=== PATIENT | female | born 1960 | race Hispanic/Latino ===

== ENCOUNTER 2016-11-20 13:56 | Emergency (ER) | payer MEDICARE ==
[2016-11-20 15:33] LABS: Hemoglobin 12.9 gm/dl (10.1-14.3); Mean Corpuscular HGB Conc 34 % (30-34); Mean Corpuscular Hemoglobin 31 pg (28-32); Mean Corpuscular Volume 91 fl (79-97); Platelet Count 363 K/mm3 (140-440); Red Blood Count 4.18 M/mm3 (3.65-5.03); Red Cell Distribution Width 15.1 % (13.2-15.2); White Blood Count 6.7 K/mm3 (4.5-11.0)
[2016-11-20 15:54] LABS: Alanine Aminotransferase 24 units/L (7-56); Albumin 3.9 g/dL (3.9-5); Albumin/Globulin Ratio 1.2 %; Alkaline Phosphatase 93 units/L (35-129); Anion Gap 15 mmol/L; BUN/Creatinine Ratio 21.11; Bilirubin,Total 0.2 mg/dL (0.1-1.2); Blood Urea Nitrogen 19 mg/dL (7-17); Carbon Dioxide 31 mmol/L (22-30); Chloride 96.9 mmol/L (98-107); Glucose 91 mg/dL (65-100); Potassium 3.9 mmol/L (3.6-5.0); Sodium 139 mmol/L (137-145); Total Protein 7.1 g/dL (6.3-8.2)
--- NOTE | 2016-11-20 20:18 | Emergency Department Report ---
ED Recheck HPI - General Chief Complaint: Recheck/Abnormal Lab/Rx Stated Complaint: DEHYDRATION Time Seen by Provider: 11/20/16 19:49 Source: patient, old records reviewed (patient brought her 10/31/2016 CMP results to the ER) Mode of arrival: Ambulatory Limitations: No Limitations - History of Present Illness Initial Comments: 56-year-old female with a past medical history of multiple sclerosis and fibromyalgia presents to the hospital complaints of abnormal blood work. Patient was advised by her neurologist to come to the ER for evaluation based on abnormal lab findings. She is likely dehydrated and will need IV fluids. Labs were drawn October 31 in revealed a BUN of 40, creatinine 1.7, potassium 3.2. Other values of BMP, calcium, and LFTs were in normal range. Patient states she's been tolerating by mouth intake and denies any acute complaints. She presented generalized chronic pain secondary to her underlying multiple sclerosis and fibromyalgia. - Related Data Previous Rx's Medication Instructions Recorded Last Taken Type Oxycodone HCl/Acetaminophen 1 each PO Q6HR PRN #30 tablet 05/29/15 Unknown Rx [Percocet 10/325 mg] Allergies Allergy/AdvReac Type Severity Reaction Status Date / Time codeine Allergy Rash Verified 07/14/16 14:21 meloxicam Allergy Anaphylaxis Verified 07/14/16 14:21 Penicillins Allergy Rash Verified 07/14/16 14:21 vancomycin Allergy Rash Verified 07/14/16 14:21 bee string Allergy Anaphylaxis Uncoded 05/28/15 21:37 ED Review of Systems ROS: Stated complaint: DEHYDRATION Other details as noted in HPI Comment: All other systems reviewed and negative Other: Constitutional: No fevers chills Eyes: No eye pain visual changes ENT: No ear pain or throat pain Neck: Denies pain Respiratory: Denies cough wheezing shortness of breath Cardiovascular: Denies chest pain, palpitations, syncope GI: Denies abdominal pain, nausea, vomiting, diarrhea : Denies dysuria Musculoskeletal: Denies chronic pain Skin: Denies rash, lesions, erythema Neurologic: Denies headache, numbness, weakness Psychiatric: Denies suicidal ideation, hallucinations ED Past Medical Hx - Past Medical History Previous Medical History?: Yes Additional medical history: Multiple sclerosis/ FIBROMALYGIA - Surgical History Past Surgical History?: Yes Hx Appendectomy: Yes Additional Surgical History: carpal tunnel x 3. diverticulitis. shoulder repair x 2 - Social History Smoking Status: Former Smoker Substance Use Type: None - Medications Home Medications: Home Medications Medication Instructions Recorded Confirmed Last Taken Type Oxycodone HCl/Acetaminophen 1 each PO Q6HR PRN #30 tablet 05/29/15 07/14/16 Unknown Rx [Percocet 10/325 mg] ED Physical Exam - General Limitations: No Limitations - Other Other exam information: General: No limitations, patient is alert in no acute distress Head exam: Atraumatic, normocephalic Eyes exam: Normal appearance ENT: Moist mucous membrane, normal oropharynx Neck exam: Normal inspection, full range of motion Respiratory exam: Clear to auscultation bilateral, no wheezes, rales, crackles Cardiovascular: Normal rate and rhythm, normal heart sounds Abdomen: Soft, nondistended, and nontender, with normal bowel sounds, no rebound, or guarding Extremity: Full range of motion normal inspection no deformity Back: Normal Inspection, full range of motion, no tenderness Neurologic: Alert, oriented x3, cranial nerves intact, no motor or sensory deficit Psychiatric: normal affect, normal mood Skin: Warm, dry, intact ED Course Vital Signs 11/20/16 14:41 Temperature 98.1 F Pulse Rate 64 Respiratory 18 Rate Blood Pressure 106/41 O2 Sat by Pulse 96 Oximetry - Reevaluation(s) Reevaluation #1: 11/20/16 20:20 Patient without any complaints ED Recheck MDM - Medical Decision Making Discharge patient home. Labs were drawn greater than 2 weeks ago. Patient has tolerated by mouth intake and self corrected. Patient will be discharged home with a copy of her lab results to take to her physicians for follow-up Critical Care Time: No Critical care attestation.: If time is entered above; I have spent that time in minutes in the direct care of this critically ill patient, excluding procedure time. ED Disposition Clinical Impression: Multiple sclerosis, Fibromyalgia Disposition: DISCHARGED TO HOME OR SELFCARE Is pt being admited?: No Does the pt Need Aspirin: No Condition: Stable Instructions: Fibromyalgia (ED) Additional Instructions: Continue current medication and treatment. You have been provided a copy of your lab results today. They have improved since her outpatient lab results from October 30. Follow-up with your physician Referrals: PRIMARY CARE, [Primary Care Provider] - 3-5 Days Time of Disposition: 20:24
[2016-11-20 21:15] VITALS: BP 119/58
== END 2016-11-20 21:05 | disposition home or self-care (01) ==
LOC: ED 13:56
DX: M79.7 Fibromyalgia (principal); G35 Multiple sclerosis; R79.9 Abnormal finding of blood chemistry, unspecified; Z87.891 Personal history of nicotine dependence; Z88.6 Allergy status to analgesic agent; Z88.0 Allergy status to penicillin; Z88.1 Allergy status to other antibiotic agents; Z91.030 Bee allergy status
CPT/HCPCS: 36415; 80053; 85027; 99283

== ENCOUNTER 2017-04-08 14:39 | Inpatient (IN) | payer MEDICARE ==
--- NOTE | 2017-04-08 17:08 | Emergency Department Report ---
Entered by CHI PRICE, acting as scribe for MARYCHUY DUFFY NP. Chief Complaint: Extremity Injury, Lower Stated Complaint: LEFT LEG PAIN Time Seen by Provider: 04/08/17 16:57 - HPI History of Present Illness: 56 y/o female presents with a hernia that has been present for a few months. Pt also notes left lower extremity pain. She denies having a menstrual cycle. - ROS Review of Systems: +mass in right inguinal canal +left lower extremity pain, swelling, redness - Exam Vital Signs: Vital Signs 04/08/17 16:59 Temperature 99.9 F H Pulse Rate 96 H Respiratory 16 Rate Blood Pressure 140/61 O2 Sat by Pulse 97 Oximetry Physical Exam: +mass in right inguinal canal +left leg swelling, erythema MSE screening note: Focused history and physical exam performed. Due to findings the following was ordered: labs ED Disposition for MSE Condition: Stable This documentation as recorded by the scribeDEE RYAN,accurately reflects the service I personally performed and the decisions made by TATI watson TRACY M, NP.
[2017-04-08 17:56] LABS: Basophils % (Auto) 0.9 % (0.0-1.8); Eosinophils % (Auto) 1.3 % (0.0-4.3); Hematocrit 40.7 % (30.3-42.9); Hemoglobin 13.7 gm/dl (10.1-14.3); Mean Corpuscular HGB Conc 34 % (30-34); Mean Corpuscular Hemoglobin 31 pg (28-32); Mean Corpuscular Volume 91 fl (79-97); Platelet Count 487 K/mm3 (140-440); Red Blood Count 4.47 M/mm3 (3.65-5.03); White Blood Count 12.3 K/mm3 (4.5-11.0)
[2017-04-08 17:57] LABS: Bacteria,Urine 2+ /HPF (Negative); Bilirubin,Urine NEG (Negative); Blood,Urine MOD (Negative); Ketones,Urine NEG (Negative); Leukocyte Esterase,Urine LG (Negative); Mucus,Urine FEW /HPF; Nitrite,Urine NEG (Negative); Urobilinogen,Urine < 2.0 mg/dL (<2.0)
[2017-04-08 18:20] LABS: Albumin 4.7 g/dL (3.9-5); Albumin/Globulin Ratio 1.1 %; BUN/Creatinine Ratio 18.09; Bilirubin,Total 0.4 mg/dL (0.1-1.2); Calcium 9.6 mg/dL (8.4-10.2); Chloride 91.5 mmol/L (98-107); Potassium 3.1 mmol/L (3.6-5.0); Total Protein 8.8 g/dL (6.3-8.2)
[2017-04-09] MEDS ORDERED: ZOFRAN IV ONE (01:58)
[2017-04-09] MEDS ORDERED: LEVAQUIN 500MG/100ML 500 MG/100 ML BAG IV ONE (01:59)
--- NOTE | 2017-04-09 02:06 | Emergency Department Report ---
<DOMENIC ORTIZ - Last Filed: 04/09/17 02:02> ED Abdominal Pain HPI - General Chief Complaint: Abdominal Pain Stated Complaint: LEFT LEG PAIN Time Seen by Provider: 04/08/17 16:57 Source: patient, EMS Mode of arrival: Ambulatory Limitations: No Limitations - History of Present Illness MD Complaint: abdominal pain -: Gradual, days(s) Location: RLQ Radiation: none Migration to: no migration Severity: moderate Severity scale (0 -10): 5 Quality: fullness Consistency: constant Associated Symptoms: nausea. denies: vomiting, chills - Related Data Home Medications Medication Instructions Recorded Confirmed Last Taken Unobtainable 04/09/17 04/09/17 Unknown Allergies Allergy/AdvReac Type Severity Reaction Status Date / Time codeine Allergy Rash Verified 04/09/17 01:33 meloxicam Allergy Anaphylaxis Verified 04/09/17 01:33 Penicillins Allergy Rash Verified 04/09/17 01:33 vancomycin Allergy Rash Verified 04/09/17 01:33 bee string Allergy Anaphylaxis Uncoded 04/09/17 01:33 ED Review of Systems ROS: Stated complaint: LEFT LEG PAIN Other details as noted in HPI Comment: All other systems reviewed and negative Constitutional: denies: chills, fever Cardiovascular: denies: chest pain, palpitations Gastrointestinal: nausea. denies: vomiting, constipation ED Past Medical Hx - Past Medical History Previous Medical History?: Yes Additional medical history: Multiple sclerosis/ FIBROMALYGIA - Surgical History Past Surgical History?: Yes Hx Appendectomy: Yes Additional Surgical History: carpal tunnel x 3. diverticulitis. shoulder repair x 2 - Social History Smoking Status: Former Smoker Substance Use Type: None - Medications Home Medications: Home Medications Medication Instructions Recorded Confirmed Last Taken Type Unobtainable 04/09/17 04/09/17 Unknown History ED Physical Exam - General Limitations: No Limitations General appearance: alert, in no apparent distress - Neck Neck exam: Present: normal inspection. Absent: tenderness - Respiratory Respiratory exam: Present: normal lung sounds bilaterally - Cardiovascular Cardiovascular Exam: Present: regular rate, normal rhythm, normal heart sounds - GI/Abdominal GI/Abdominal exam: Present: soft, tenderness, hernia (rt inguinal hernia, irreducible). Absent: guarding, rebound, normal bowel sounds, diminished bowel sounds, mass - Back Exam Back exam: Present: normal inspection. Absent: tenderness, CVA tenderness (R), CVA tenderness (L) - Neurological Exam Neurological exam: Present: alert, oriented X3, CN II-XII intact - Skin Skin exam: Present: warm, normal color ED Course Vital Signs 04/08/17 04/09/17 04/09/17 16:59 01:49 03:00 Temperature 99.9 F H Pulse Rate 96 H 72 88 Respiratory 16 20 16 Rate Blood Pressure 140/61 Blood Pressure 137/72 128/75 [Left] O2 Sat by Pulse 97 100 100 Oximetry 04/09/17 06:30 Temperature 98.4 F Pulse Rate 80 Respiratory 20 Rate Blood Pressure Blood Pressure 111/58 [Left] O2 Sat by Pulse 97 Oximetry ED Medical Decision Making - Lab Data Result diagrams: 04/08/17 17:44 04/08/17 17:44 Critical care attestation.: If time is entered above; I have spent that time in minutes in the direct care of this critically ill patient, excluding procedure time. ED Disposition Clinical Impression: Acute renal insufficiency, Right inguinal hernia, Constipation, Ileus, Hypokalemia Disposition: -09 OP ADMIT IP TO THIS [facility] Condition: Stable <HELADIO ESPARZA - Last Filed: 04/09/17 07:07> ED Medical Decision Making - Lab Data Result diagrams: 04/08/17 17:44 04/08/17 17:44 - Radiology Data Radiology results: report reviewed CT abdomen and pelvis by mouth contrast: A few loops of distal slightly dilated small bowel in the lower abdomen. Ileus in this distal ileum is suspected. Moderate fecal debris in the colon consistent with constipation. Right inguinal hernia with fat and fluid ED Disposition Is pt being admited?: Yes Time of Disposition: 07:06 (Dr gonsalves/hosp)
--- NOTE | 2017-04-09 06:27 | Cat Scan Report ---
FINAL REPORT PROCEDURE: CT ABDOMEN PELVIS WO CON TECHNIQUE: Computerized axial tomography of the abdomen and pelvis was performed without intravenous contrast. This study is performed without intravascular contrast material and its sensitivity for abdominal and pelvic pathology, including neoplasms, inflammation, abscess, free fluid, thrombosis, arterial dissection and infarction, is reduced compared with a contrast enhanced study. HISTORY: ABDOMINAL PAIN, RT inguinal hernia,irreducible COMPARISON: No prior studies are available for comparison. FINDINGS: Visualized lower thorax: No significant abnormality. Liver: Normal size and attenuation. Spleen: Normal size and attenuation. Gallbladder and biliary system: Normal. Pancreas: Normal. Adrenals: Normal. Kidneys: Normal. GI tract: The stomach is normal. There are few loops of slightly dilated small bowel in the lower abdomen. In ileus in the distal ileum is suspected. The cecum, appendix region and colon are normal. Moderate fecal debris throughout the colon.. Lymph nodes and mesentery: Normal. Vasculature: Normal. Bladder: The urinary bladder is significantly distended.. Reproductive organs: There is a large cyst on the right ovary. There appears to be a few calcifications in the periphery. Dermoid cyst is possible. This cyst measures 3.6 by 3.7 centimeters. The uterus is normal.. Peritoneum: No free fluid. Musculoskeletal structures: No significant abnormality. Other: There is a right inguinal hernia there is some mesenteric fat and some fluid within the hernia cavity.. IMPRESSION: There are few loops of slightly dilated small bowel in the lower abdomen. An ileus in the distal ileum is suspected. Moderate fecal debris in the colon consistent with constipation. Right inguinal hernia with fat in fluid identified within the hernia cavity. .
--- NOTE | 2017-04-09 07:23 | Admit Criteria Form ---
Admission Criteria Documentation: ABDOMINAL PAIN Clinical Indications for Admission to Inpatient Care (Place 'X' for any and all applicable criteria): Admission is indicated for ANY ONE of the following(1)(2)(3)(4)(5): [ X]I. Inpatient admission required rather than observation care (Also use Abdominal Pain: Observation Care, as appropriate) because of ANY ONE of the following: [ ]a) Severe pain requiring acute inpatient management [X ]b) Identification of etiology/finding that requires inpatient care (eg, aortic dissection, free air) [ ]c) Absent bowel sounds with complete ileus(6) [ ]d) Suspected toxic megacolon [ ]e) Severe electrolyte abnormalities requiring inpatient care [ ]f) High fever or infection requiring inpatient admission as indicated by ANY ONE of following(7)(8): [ ] i) Appropriate outpatient or observational care antimicrobial treatment unavailable, not effective, or not feasible [ ] ii) Documented bacteremia [ ] iii) Temperature > 104.9 degrees F (oral) [ ] iv) T >103.1 F (oral) or < 96.8 F(rectal) that does not respond to all emergency treatment measures [ ]g) Signs of intestinal obstruction [B] [ ]h) Hemodynamic instability [ ]i) IV fluid to replace significant ongoing losses (greater than 3 L/m2 per day) (12)(13) [ ]j) Percutaneous or open drainage (eg, abscess, biliary tract ) procedures [ ]k) Parenteral nutrition regimen that must be implemented on inpatient basis [ ]l) Other condition,treatment or monitoring requiring inpatient admission. [ ]II. Peritoneal signs present [ ]III. Surgery needed that cannot be performed on an ambulatory basis. [ ]IV. Evaluation requires patient to not eat or drink for extended period ( eg, more than 24 hours). [ ]V. Contraindications and/or Inappropriate clinical situations for Observational Care in patients with abdominal pain, when ANY ONE of the following is required: [ ]a) Thorough evaluation is required to prevent catastrophic events due to delays in diagnosing (e.g.Mesenteric ischemia) 1,3 [ ]b) Patient with severe pathology or with chronic symptoms unlikely to improve in the ED stay (3) [X ]. General contraindications and/or Inappropriate clinical situations for Observational Care in patients with abdominal pain, when ANY ONE of the following is required: [X ]a) Prediction of prolongation of LOS based on ANY ONE of the following may be considered as a contraindication for observational care 2, 3, 4, 5, 6, 7, 8, 9, 10, 11 [ ]i) Age > 65 yrs. [X ]ii) Patient arriving by ambulance [ ]iii) Patient with high acuity [ ]iv) Patient requiring vital sign monitoring [ ]v) Patient on IV medication [ ]b) Systolic blood pressures 180mmHg 3,12 [ ]c) Patient with altered mental status including delirium and other alteration of consciousness, (3) [ ]d) Patient whose discharge disposition will be to a custodial home or rehabilitation home should not be managed in Emergency Department Observation Unit. CMS rule requires 3 days hospital stay before such placement.3,13 [ ]e) Patient with failure to thrive due to broad array of etiologies 3,16,17 [ ]f) Inability to ambulate 3,14 Extended stay beyond goal length of stay may be needed for(2)(3): [ ]a) Persistent abdominal pain with suspected intra-abdominal process [ ]b) Diagnosed condition requiring continued stay (e.g., pancreatitis, complicated diverticulitis) [ ]c) Surgery (e.g., colectomy) The original [email or web address] content created by [employer] has been revised. The portions of the content which have been revised are identified through the use of italic text or in bold, and [facility] has neither reviewed nor approved the modified material.All other unmodified content is copyright [email or web address]. Please see references footnoted in the original [facility] [employer] edition 2016 Admission Criteria Met: Yes
--- NOTE | 2017-04-09 08:16 | History and Physical Report ---
<LOY STOVALL - Last Filed: 04/09/17 12:49> History of Present Illness Date of examination: 04/09/17 Date of admission: 04/09/2017 Chief complaint: Abdominal pain, nausea and vomiting History of present illness: Patient is 56 years old female with past medical history of multiple sclerosis and fibromyalgia presents to the hospital complaints of abdominal pain, nausea and vomiting. patient two days of severe abdominal pain, nausea and vomiting. She stated that on yesterday evening after being in her usual state of health she began to experience sharp lower abdominal pain that radiated to right lower quadrant. The pain waxed and waned and was about a 4/10.Since yesterday she has had severe nausea and has had 4 episodes of bilious vomiting despite not having taken anything by mouth in over 24 hours. Her last bowel movement was over five days ago. She has a history of intermittent constipation but never with this level of pain, the vomiting, or the bloating. Patient also mentioned her abdominal pain is coming from her right inguinal hernia. Past History Past Medical History: other (Multiple sclerosis and fibromyalgia ) Past Surgical History: No surgical history Social history: no significant social history, smoking Family history: CAD, hypertension Medications and Allergies Allergies Allergy/AdvReac Type Severity Reaction Status Date / Time codeine Allergy Rash Verified 04/09/17 01:33 meloxicam Allergy Anaphylaxis Verified 04/09/17 01:33 Penicillins Allergy Rash Verified 04/09/17 01:33 vancomycin Allergy Rash Verified 04/09/17 01:33 bee string Allergy Anaphylaxis Uncoded 04/09/17 01:33 Home Medications Medication Instructions Recorded Confirmed Last Taken Type Unobtainable 04/09/17 04/09/17 Unknown History Review of Systems Constitutional: no weight loss, no weight gain, no fever, no chills Ears, nose, mouth and throat: no ear pain, no ear discharge, no tinnitis, no decreased hearing Cardiovascular: no chest pain, no orthopnea, no palpitations, no rapid/ irregular heart beat Respiratory: no cough, no cough with sputum, no excessive sputum, no hemoptysis Gastrointestinal: nausea, vomiting, constipation Genitourinary Female: no dysmenorrhea, no pelvic pain, no flank pain, no menorrhagia, no dysuria, no urinary frequency Menstruation: no currently menstrual, no premenarcheal, no post hysterectomy, no ammenorrhea Rectal: no pain, no incontinence Musculoskeletal: no neck stiffness, no neck pain, no shooting arm pain Integumentary: no rash, no pruritis, no redness, no sores Neurological: no transient paralysis, no paralysis, no weakness, no parathesias Psychiatric: no memory loss, no change in sleep habits, no sleep disturbances, no insomnia Endocrine: no cold intolerance, no heat intolerance, no polyphagia, no excessive thirst Hematologic/Lymphatic: no easy bruising, no easy bleeding Allergic/Immunologic: no urticaria, no allergic rhinitis Exam - Constitutional Vitals: Temp Pulse Resp BP Pulse Ox 98.4 F 80 20 111/58 97 04/09/17 06:30 04/09/17 06:30 04/09/17 06:30 04/09/17 06:30 04/09/17 06:30 General appearance: Present: no acute distress - EENT Eyes: Present: PERRL ENT: hearing intact - Neck Neck: Present: supple - Respiratory Respiratory effort: normal Respiratory: bilateral: CTA - Cardiovascular Heart rate: 80 Rhythm: regular Heart Sounds: Present: S1 & S2 - Extremities Extremities: no ischemia Peripheral Pulses: within normal limits - Abdominal General gastrointestinal: Present: soft, non-tender Female genitourinary: Present: deferred - Rectal Rectal Exam: deferred - Integumentary Integumentary: Present: clear, warm, dry - Musculoskeletal Musculoskeletal: strength equal bilaterally - Psychiatric Psychiatric: appropriate mood/affect - Neurologic Neurologic: CNII-XII intact - Allied Health Allied health notes reviewed: nursing Results - Labs CBC & Chem 7: 04/08/17 17:44 04/08/17 17:44 Labs: Laboratory Last Values WBC 12.3 K/mm3 (4.5-11.0) H 04/08/17 17:44 RBC 4.47 M/mm3 (3.65-5.03) 04/08/17 17:44 Hgb 13.7 gm/dl (10.1-14.3) 04/08/17 17:44 Hct 40.7 % (30.3-42.9) 04/08/17 17:44 MCV 91 fl (79-97) 04/08/17 17:44 MCH 31 pg (28-32) 04/08/17 17:44 MCHC 34 % (30-34) 04/08/17 17:44 RDW 14.0 % (13.2-15.2) 04/08/17 17:44 Plt Count 487 K/mm3 (140-440) H 04/08/17 17:44 Lymph % (Auto) 33.1 % (13.4-35.0) 04/08/17 17:44 [place] % (Auto) 9.5 % (0.0-7.3) H 04/08/17 17:44 Eos % (Auto) 1.3 % (0.0-4.3) 04/08/17 17:44 Baso % (Auto) 0.9 % (0.0-1.8) 04/08/17 17:44 Lymph # 4.1 K/mm3 (1.2-5.4) 04/08/17 17:44 [place] # 1.2 K/mm3 (0.0-0.8) H 04/08/17 17:44 Eos # 0.2 K/mm3 (0.0-0.4) 04/08/17 17:44 Baso # 0.1 K/mm3 (0.0-0.1) 04/08/17 17:44 Seg Neutrophils % 55.2 % (40.0-70.0) 04/08/17 17:44 Seg Neutrophils # 6.8 K/mm3 (1.8-7.7) 04/08/17 17:44 Sodium 138 mmol/L (137-145) 04/08/17 17:44 Potassium 3.1 mmol/L (3.6-5.0) L 04/08/17 17:44 Chloride 91.5 mmol/L (98-107) L 04/08/17 17:44 Carbon Dioxide 31 mmol/L (22-30) H 04/08/17 17:44 Anion Gap 19 mmol/L 04/08/17 17:44 BUN 38 mg/dL (7-17) H 04/08/17 17:44 Creatinine 2.1 mg/dL (0.7-1.2) H 04/08/17 17:44 Estimated GFR 24 ml/min 04/08/17 17:44 BUN/Creatinine Ratio 18.09 % 04/08/17 17:44 Glucose 118 mg/dL (65-100) H 04/08/17 17:44 Calcium 9.6 mg/dL (8.4-10.2) 04/08/17 17:44 Total Bilirubin 0.40 mg/dL (0.1-1.2) 04/08/17 17:44 AST 92 units/L (5-40) H 04/08/17 17:44 ALT 53 units/L (7-56) 04/08/17 17:44 Alkaline Phosphatase 114 units/L (35-129) 04/08/17 17:44 NT-Pro-B Natriuret Pep 163.7 pg/mL (0-900) 04/08/17 17:44 Total Protein 8.8 g/dL (6.3-8.2) H 04/08/17 17:44 Albumin 4.7 g/dL (3.9-5) 04/08/17 17:44 Albumin/Globulin Ratio 1.1 % 04/08/17 17:44 Urine Color Yellow (Yellow) 04/08/17 17:45 Urine Turbidity Cloudy (Clear) 04/08/17 17:45 Urine pH 5.0 (5.0-7.0) 04/08/17 17:45 Ur Specific [place] 1.013 (1.003-1.030) 04/08/17 17:45 Urine Protein 30 mg/dl mg/dL (Negative) 04/08/17 17:45 Urine Glucose (UA) Neg mg/dL (Negative) 04/08/17 17:45 Urine Ketones Neg mg/dL (Negative) 04/08/17 17:45 Urine Blood Mod (Negative) 04/08/17 17:45 Urine Nitrite Neg (Negative) 04/08/17 17:45 Urine Bilirubin Neg (Negative) 04/08/17 17:45 Urine Urobilinogen < 2.0 mg/dL (<2.0) 04/08/17 17:45 Ur Leukocyte Esterase Lg (Negative) 04/08/17 17:45 Urine WBC (Auto) 18.0 /HPF (0.0-6.0) H 04/08/17 17:45 Urine RBC (Auto) 6.0 /HPF (0.0-6.0) 04/08/17 17:45 U Epithel Cells (Auto) 39.0 /HPF (0-13.0) H 04/08/17 17:45 Urine Bacteria (Auto) 2+ /HPF (Negative) 04/08/17 17:45 Urine Mucus Few /HPF 04/08/17 17:45 - Imaging and Cardiology CT scan - abdomen: image reviewed (CT abdomen and pelvis by mouth contrast: A few loops of distal slightly dilated small bowel in the lower abdomen. Ileus in this distal ileum is suspected. Moderate fecal debris in the colon consistent with constipation. Right inguinal hernia with fat and fluid) Assessment and Plan Assessment and plan: ASSESSMENT/PLAN Sepsis We will admit to MED/SURG most likely secondary to UTI Elevated urine WBC Blood and urine culture collected prior antibiotic Started on empiric antibiotic treatment with Rocephin IV fluid Acute renal failure/vasomotor nephropathy Etiology unknown Most likely from dehydration IV fluid hydration Renal ultrasound ordered Nephrology building performance consultant we will repeat BMP in the AM Urinary tract infection (UTI) Started on empiric antibiotic treatment with Rocephin IV fluid hydration Leukocytosis Most likely from UTI we will repeat CBC Hypokalemia Replaced with 40meq Closely monitor electrolytes Right inguinal hernia CT of the abdomen right Inguinal hernia with fat and fluid consulted surgery Possible Ileus CT abdomen and pelvis by mouth contrast: A few loops of distal slightly dilated small bowel in the lower abdomen. Ileus in this distal ileum is suspected. Moderate fecal debris in the colon consistent with constipation. DVT prophylaxis Lovenox. Advance Directives: Yes VTE prophylaxis?: Chemical Contraindication Mechanical VTE Prophylaxis: Treatment Not Indicated Plan of care discussed with patient/family: Yes <ANJELICA MALLOY - Last Filed: 04/09/17 13:26> History of Present Illness Date of admission: 04/09/17 08:05 Medications and Allergies Active Meds: Active Medications Acetaminophen (Tylenol) 650 mg PO Q4H PRN PRN Reason: Pain MILD(1-3)/Fever >100.5/ROSADO Bisacodyl (Dulcolax) 10 mg [place] QDAY PRN PRN Reason: Constipation Enoxaparin Sodium (Lovenox) 40 mg SUB-Q QDAY@2200 [facility] Sodium Chloride (Nacl 0.9% 1000 Ml) 1,000 mls @ 75 mls/hr IV DIRECT [facility] Ceftriaxone Sodium (Rocephin/Ns 1 Gm/50 Ml) 1 gm in 50 mls @ 100 mls/hr IV Q24H [facility] PRN Reason: Protocol Last Admin: 04/09/17 09:27 Dose: 100 mls/hr Morphine Sulfate (Morphine) 2 mg IV Q4H PRN PRN Reason: Pain, Moderate (4-6) Ondansetron HCl (Zofran) 4 mg IV Q4H PRN PRN Reason: Nausea And Vomiting Potassium Chloride (K-Dur) 40 meq PO ONCE NR Stop: 04/09/17 14:30 Potassium Chloride (K-Dur) 40 meq PO ONCE ONE Stop: 04/09/17 13:21 Exam - Constitutional Vitals: Temp Pulse Resp BP Pulse Ox 98.4 F 80 20 111/58 97 04/09/17 06:30 04/09/17 06:30 04/09/17 06:30 04/09/17 06:30 04/09/17 06:30 Results - Labs CBC & Chem 7: 04/08/17 17:44 04/08/17 17:44 Labs: Laboratory Last Values WBC 12.3 K/mm3 (4.5-11.0) H 04/08/17 17:44 RBC 4.47 M/mm3 (3.65-5.03) 04/08/17 17:44 Hgb 13.7 gm/dl (10.1-14.3) 04/08/17 17:44 Hct 40.7 % (30.3-42.9) 04/08/17 17:44 MCV 91 fl (79-97) 04/08/17 17:44 MCH 31 pg (28-32) 04/08/17 17:44 MCHC 34 % (30-34) 04/08/17 17:44 RDW 14.0 % (13.2-15.2) 04/08/17 17:44 Plt Count 487 K/mm3 (140-440) H 04/08/17 17:44 Lymph % (Auto) 33.1 % (13.4-35.0) 04/08/17 17:44 [place] % (Auto) 9.5 % (0.0-7.3) H 04/08/17 17:44 Eos % (Auto) 1.3 % (0.0-4.3) 04/08/17 17:44 Baso % (Auto) 0.9 % (0.0-1.8) 04/08/17 17:44 Lymph # 4.1 K/mm3 (1.2-5.4) 04/08/17 17:44 [place] # 1.2 K/mm3 (0.0-0.8) H 04/08/17 17:44 Eos # 0.2 K/mm3 (0.0-0.4) 04/08/17 17:44 Baso # 0.1 K/mm3 (0.0-0.1) 04/08/17 17:44 Seg Neutrophils % 55.2 % (40.0-70.0) 04/08/17 17:44 Seg Neutrophils # 6.8 K/mm3 (1.8-7.7) 04/08/17 17:44 Sodium 138 mmol/L (137-145) 04/08/17 17:44 Potassium 3.1 mmol/L (3.6-5.0) L 04/08/17 17:44 Chloride 91.5 mmol/L (98-107) L 04/08/17 17:44 Carbon Dioxide 31 mmol/L (22-30) H 04/08/17 17:44 Anion Gap 19 mmol/L 04/08/17 17:44 BUN 38 mg/dL (7-17) H 04/08/17 17:44 Creatinine 2.1 mg/dL (0.7-1.2) H 04/08/17 17:44 Estimated GFR 24 ml/min 04/08/17 17:44 BUN/Creatinine Ratio 18.09 % 04/08/17 17:44 Glucose 118 mg/dL (65-100) H 04/08/17 17:44 Calcium 9.6 mg/dL (8.4-10.2) 04/08/17 17:44 Total Bilirubin 0.40 mg/dL (0.1-1.2) 04/08/17 17:44 AST 92 units/L (5-40) H 04/08/17 17:44 ALT 53 units/L (7-56) 04/08/17 17:44 Alkaline Phosphatase 114 units/L (35-129) 04/08/17 17:44 NT-Pro-B Natriuret Pep 163.7 pg/mL (0-900) 04/08/17 17:44 Total Protein 8.8 g/dL (6.3-8.2) H 04/08/17 17:44 Albumin 4.7 g/dL (3.9-5) 04/08/17 17:44 Albumin/Globulin Ratio 1.1 % 04/08/17 17:44 Urine Color Yellow (Yellow) 04/09/17 Unknown Urine Turbidity Clear (Clear) 04/09/17 Unknown Urine pH 5.0 (5.0-7.0) 04/09/17 Unknown Ur Specific [place] 1.013 (1.003-1.030) 04/09/17 Unknown Urine Protein <15 mg/dl mg/dL (Negative) 04/09/17 Unknown Urine Glucose (UA) Neg mg/dL (Negative) 04/09/17 Unknown Urine Ketones Neg mg/dL (Negative) 04/09/17 Unknown Urine Blood Sm (Negative) 04/09/17 Unknown Urine Nitrite Neg (Negative) 04/09/17 Unknown Urine Bilirubin Neg (Negative) 04/09/17 Unknown Urine Urobilinogen < 2.0 mg/dL (<2.0) 04/09/17 Unknown Ur Leukocyte Esterase Sm (Negative) 04/09/17 Unknown Urine WBC (Auto) 4.0 /HPF (0.0-6.0) 04/09/17 Unknown Urine RBC (Auto) 1.0 /HPF (0.0-6.0) 04/09/17 Unknown U Epithel Cells (Auto) 4.0 /HPF (0-13.0) 04/09/17 Unknown Urine Bacteria (Auto) 2+ /HPF (Negative) 04/08/17 17:45 Urine Mucus Few /HPF 04/09/17 Unknown Assessment and Plan Assessment and plan: I saw and evaluated the patient. I agree with the findings and the plan of care as documented in the Nurse Practitioner's H/P note. Advance Directives: Yes VTE prophylaxis?: Chemical Plan of care discussed with patient/family: Yes
[2017-04-09] MEDS ORDERED: TYLENOL PO PRN (08:30)
[2017-04-09] MEDS ORDERED: ZOFRAN IV PRN (09:00)
[2017-04-09] MEDS ORDERED: ROCEPHIN/NS 1 GM/50 ML 1 GM/50 ML BAG IV ONE (09:13)
[2017-04-09] MEDS: ROCEPHIN/NS 1 GM/50 ML 1 GM/50 ML BAG IV SCH (09:27)
[2017-04-09 09:36] LABS: Bilirubin,Urine NEG (Negative); Blood,Urine SM (Negative); Ketones,Urine NEG (Negative); Leukocyte Esterase,Urine SM (Negative); Mucus,Urine FEW /HPF; Nitrite,Urine NEG (Negative); Protein,Urine <15 mg/dL mg/dL (Negative); Urobilinogen,Urine < 2.0 mg/dL (<2.0)
[2017-04-09] MEDS ORDERED: DULCOLAX PR PRN (10:00)
[2017-04-09] MEDS ORDERED: K-DUR PO NR (13:00)
[2017-04-09] MEDS ORDERED: K-DUR PO ONE (14:00)
--- NOTE | 2017-04-09 14:31 | Ultrasound Report ---
ULTRASOUND RENAL BILATERAL HISTORY: Acute renal failure. TECHNIQUE: transabdominal ultrasound with color Doppler interrogation. FINDINGS: The right kidney measures 8.6cm. Right renal cortex: 1.6cm. The left kidney measures 9.5cm. Left renal cortex: 1.9cm. Scans of the kidneys show normal renal contours. There is normal central calyceal clustering and good preservation of the cortical thickness. There appears to be a duplicated collecting system in the left kidney. There is no evidence of mass or hydronephrosis. The views of the bladder and the region of the ureters appear normal. IMPRESSION: Unremarkable renal ultrasound. Duplicated collecting system and the left kidney which is probably an incidental finding.
[2017-04-09] MEDS: NACL 0.9% 1000 ML 1,000 ML IV SCH (15:17)
--- NOTE | 2017-04-09 16:12 | Consultation ---
History of Present Illness Consult date: 04/09/17 Reason for consult: other (I am asked to evaluate this patient's right inguinal hernia) - History of present illness History of present illness: This is a 56 year old female who presented to [facility] ER for evaluation of abd pain , incidentally noted to have a right inguinal hernia, she presented complaining of right lower quadrant pain, she is very agitated presently and does not respond to direct questions well (psych hx?), she said she had some nausea and vomiting prior to coming to the ER, she has a mildly elevated WBC, she has a reducible right inguinal hernia which is not very tender, she had a CT of the abd pelvis revealing mild dilatation of her terminal illeum , constipation, previous appendectomy. Past History Past Medical History: other (Multiple sclerosis and fibromyalgia ) Past Surgical History: No surgical history Social history: no significant social history, smoking Family history: CAD, hypertension Medications and Allergies Allergies Allergy/AdvReac Type Severity Reaction Status Date / Time codeine Allergy Rash Verified 04/09/17 01:33 meloxicam Allergy Anaphylaxis Verified 04/09/17 01:33 Penicillins Allergy Rash Verified 04/09/17 01:33 vancomycin Allergy Rash Verified 04/09/17 01:33 bee string Allergy Anaphylaxis Uncoded 04/09/17 01:33 Home Medications Medication Instructions Recorded Confirmed Last Taken Type Unobtainable 04/09/17 04/09/17 Unknown History Active Meds: Active Medications Acetaminophen (Tylenol) 650 mg PO Q4H PRN PRN Reason: Pain MILD(1-3)/Fever >100.5/ROSADO Bisacodyl (Dulcolax) [address] QDAY PRN PRN Reason: Constipation Enoxaparin Sodium (Lovenox) 30 mg SUB-Q QDAY@2200 [facility] Sodium Chloride (Nacl 0.9% 1000 Ml) 1,000 mls @ 75 mls/hr IV DIRECT [facility] Last Admin: 04/09/17 15:17 Dose: 75 mls/hr Ceftriaxone Sodium (Rocephin/Ns 1 Gm/50 Ml) 1 gm in 50 mls @ 100 mls/hr IV Q24H [facility] PRN Reason: Protocol Last Admin: 04/09/17 09:27 Dose: 100 mls/hr Morphine Sulfate (Morphine) 2 mg IV Q4H PRN PRN Reason: Pain, Moderate (4-6) Ondansetron HCl (Zofran) 4 mg IV Q4H PRN PRN Reason: Nausea And Vomiting Review of Systems - Constitutional chronic pain Exam Vital Signs Temp Pulse Resp BP Pulse Ox 99.9 F H 96 H 16 140/61 97 04/08/17 16:59 04/08/17 16:59 04/08/17 16:59 04/08/17 16:59 04/08/17 16:59 - General physical appearance Positive: moderate distress, other (agitated) - Eyes Positive: PERRL, normal occular movement - ENT Positive: normal pinna, normal nares, normal mucosa, no hearing loss, no congestion - Neck Positive: no masses, no bruits, trachea midline, no venous distension - Respiratory Positive: normal expansion, normal respiratory effort, clear to auscultation - Cardiovascular Rhythm: regular Heart Sounds: Present: S1 & S2. Absent: rub, click - Extremities Extremities: no ischemia Peripheral Pulses: within normal limits - Abdomen Abdomen: Present: soft, bowel sounds normal, other (reducible right inguinal hernia) Hernia: inguinal (reducible right inguinal hernia) - Integumentary no rash - Psychiatric Psychiatric: agitated Results - Labs 04/08/17 17:44 04/08/17 17:44 Assessment and Plan abd pain, etiology?, she has an easily reducible right inguinal hernia , which the CT of the abd /pelvis demonstrates is filled with fat and fluid, no bowel. Psych hx? poor historian I am no certain the right inguinal hernia is the cause of her pain, I will re examine the patient tommorrow.
--- NOTE | 2017-04-09 20:26 | Consultation ---
History of Present Illness - Reason for Consult Consult date: 04/09/17 acute renal failure Requesting physician: ANJELICA MALLOY - History of Present Illness This is a 56 yo female with past medical history of multiple sclerosis , fibromyalgia, who presented to [facility] ER with complaints of abdominal pain, nausea and bilious vomiting, which reportedly has been going on for last 2-3 days. Pain is mostly at Rt lower quadrant. Pt reports that last bowel movement was more than [address] A/P showed evidence of acute ileus at distal ileum. Pt is admitted for further surgical evaluation and treatment of ileus. Labs showed also abnormal kidney function with BUN/Cr at 38/2.1mg/dl. Pt's previous renal function was normal with Cr at 0.9mg/dl on 11/20/16. Renal consult is requested for management of acute kidney injury. Pt seen and examined at bedside, is awake, alert, in no acute distress, however pt has tangential thoughts and is not able to answer questions coherently. Not able to obtain detailed history. Past History Past Medical History: other (Multiple sclerosis and fibromyalgia ) Past Surgical History: No surgical history Social history: no significant social history, smoking Family history: CAD, hypertension Medications and Allergies Allergies Allergy/AdvReac Type Severity Reaction Status Date / Time codeine Allergy Rash Verified 04/09/17 01:33 meloxicam Allergy Anaphylaxis Verified 04/09/17 01:33 Penicillins Allergy Rash Verified 04/09/17 01:33 vancomycin Allergy Rash Verified 04/09/17 01:33 bee string Allergy Anaphylaxis Uncoded 04/09/17 01:33 Home Medications Medication Instructions Recorded Confirmed Last Taken Type Unobtainable 04/09/17 04/09/17 Unknown History Active Meds: Active Medications Acetaminophen (Tylenol) 650 mg PO Q4H PRN PRN Reason: Pain MILD(1-3)/Fever >100.5/ROSADO Bisacodyl (Dulcolax) 10 mg [place] QDAY PRN PRN Reason: Constipation Enoxaparin Sodium (Lovenox) 30 mg SUB-Q QDAY@2200 [facility] Sodium Chloride (Nacl 0.9% 1000 Ml) 1,000 mls @ 75 mls/hr IV DIRECT [facility] Last Admin: 04/09/17 15:17 Dose: 75 mls/hr Ceftriaxone Sodium (Rocephin/Ns 1 Gm/50 Ml) 1 gm in 50 mls @ 100 mls/hr IV Q24H [facility] PRN Reason: Protocol Last Admin: 04/09/17 09:27 Dose: 100 mls/hr Morphine Sulfate (Morphine) 2 mg IV Q4H PRN PRN Reason: Pain, Moderate (4-6) Ondansetron HCl (Zofran) 4 mg IV Q4H PRN PRN Reason: Nausea And Vomiting Review of Systems Constitutional: weight loss, weakness, poor appetite Gastrointestinal: abdominal pain, nausea, vomiting, constipation Exam - Vital Signs Vital signs: Vital Signs Temp Pulse Resp BP Pulse Ox 99.9 F H 96 H 16 140/61 97 04/08/17 16:59 04/08/17 16:59 04/08/17 16:59 04/08/17 16:59 04/08/17 16:59 - General Appearance General appearance: well-developed, well-nourished, appears stated age EENT: ATNC, PERRL Neck: Present: neck supple Respiratory: Clear to Ascultation Heart: regular, S1S2 Gastrointestinal: Present: absent bowel sounds, tenderness, distended Integumentary: no rash, other (no edema ) Neurologic: no focal deficit, alert and oriented x3, CN 3-12 intact Psychiatric: agitated, other (tangentia thoughts ) Results - Lab Results 04/08/17 17:44 04/08/17 17:44 Most recent lab results Calcium 9.6 mg/dL (8.4-10.2) 04/08/17 17:44 Laboratory Tests 04/08/17 04/08/17 04/09/17 17:44 17:44 Unknown Calcium 9.6 Total Bilirubin 0.40 AST 92 H ALT 53 Alkaline Phosphatase 114 NT-Pro-B Natriuret Pep 163.7 Total Protein 8.8 H Albumin 4.7 Albumin/Globulin Ratio 1.1 Urine Color Yellow Urine pH 5.0 Ur Specific [place] 1.013 Urine Protein <15 mg/dl Urine Glucose (UA) Neg Urine Blood Sm Urine Nitrite Neg Ur Leukocyte Esterase Sm Urine WBC (Auto) 4.0 Urine RBC (Auto) 1.0 U Epithel Cells (Auto) 4.0 Urine Mucus Few Assessment and Plan - Patient Problems (1) Acute kidney injury Current Visit: Yes Status: Acute Plan to address problem: most likely due to pre-renal azotemia in the setting of ileus/volume depletion. cont IVF with NS at 100ml/hr. check urine lytes, urine protein/cr ratio supportive care for NGOC, avoid nephrotoxins, NSAIDs, IV contrast will monitor lytes/renal parameters closely and make further recommendations (2) Hypokalemia Current Visit: Yes Status: Acute Plan to address problem: supplementation with IV KCL (3) Ileus Current Visit: Yes Status: Acute Plan to address problem: follow surgery recommendations
[2017-04-09] MEDS ORDERED: HALDOL IM ONE (21:46)
[2017-04-09] MEDS ORDERED: LOVENOX SUB-Q SCH ×2 (22:00)
[2017-04-10] MEDS: MORPHINE IV PRN (00:44)
[2017-04-10 06:09] LABS: Eosinophils % (Auto) 1.8 % (0.0-4.3); Hematocrit 38.9 % (30.3-42.9); Hemoglobin 13.1 gm/dl (10.1-14.3); Mean Corpuscular HGB Conc 34 % (30-34); Mean Corpuscular Hemoglobin 30 pg (28-32); Mean Corpuscular Volume 90 fl (79-97); Platelet Count 415 K/mm3 (140-440); Red Blood Count 4.34 M/mm3 (3.65-5.03); Red Cell Distribution Width 13.9 % (13.2-15.2); White Blood Count 8.9 K/mm3 (4.5-11.0)
[2017-04-10 06:18] LABS: Anion Gap 20 mmol/L; BUN/Creatinine Ratio 22.22; Blood Urea Nitrogen 20 mg/dL (7-17); Carbon Dioxide 28 mmol/L (22-30); Chloride 98.8 mmol/L (98-107); Glucose 97 mg/dL (65-100); Sodium 144 mmol/L (137-145)
[2017-04-10] MEDS: NACL 0.9% 1000 ML 1,000 ML IV SCH ×2 (07:48→23:44)
[2017-04-10] MEDS: ROCEPHIN/NS 1 GM/50 ML 1 GM/50 ML BAG IV SCH (09:14)
--- NOTE | 2017-04-10 09:54 | Progress Note ---
Assessment and Plan - Patient Problems (1) Acute kidney injury Current Visit: Yes Status: Acute Plan to address problem: most likely due to pre-renal azotemia in the setting of ileus/volume depletion. renal function improved on IVF, cont IV NS at 75ml/hr. supportive care for NGOC, avoid nephrotoxins, NSAIDs, IV contrast will monitor lytes/renal parameters closely and make further recommendations (2) Hypokalemia Current Visit: Yes Status: Acute Plan to address problem: supplementation with IV KCL 10meq x 2 and po Kdur 40meq x 1 dose (3) Ileus Current Visit: Yes Status: Acute Plan to address problem: supportive care, follow surgery recs Subjective Date of service: 04/10/17 Principal diagnosis: ileus, acute kidney injury Interval history: pt awake, alert, in NAD Objective - Vital Signs Vital signs: Vital Signs - 12hr 04/09/17 04/09/17 04/10/17 22:00 23:00 00:44 Temperature 99.9 F H Pulse Rate 96 H Pulse Rate [ 102 H Apical] Respiratory 18 14 14 Rate Blood Pressure 155/74 O2 Sat by Pulse 99 Oximetry 04/10/17 04/10/17 08:00 09:24 Temperature 98.1 F Pulse Rate 87 Pulse Rate [ Apical] Respiratory 20 20 Rate Blood Pressure 144/69 O2 Sat by Pulse 97 Oximetry - General Appearance General appearance: well-developed, well-nourished, appears stated age EENT: ATNC, PERRL, mucous membranes moist Neck: no JVD Respiratory: Present: Clear to Ascultation Cardiology: regular, S1S2 Gastrointestinal: normal, hypoactive bowel sounds Integumentary: no rash, other (no edema ) Neurologic: no focal deficit, alert and oriented x3, strength 5/5, CN 3-12 intact Psychiatric: mood/affect appropriate, cooperative - Lab 04/10/17 05:09 04/10/17 05:09 Most recent lab results Calcium 9.0 mg/dL (8.4-10.2) 04/10/17 05:09 Urine Creatinine 110.8 mg/dL (0.1-20.0) H 04/09/17 Unknown Urine Sodium 20 mEq/L 04/09/17 Unknown Urine Total Protein 11 mg/dL (5-11.8) 04/09/17 Unknown
[2017-04-10] MEDS ORDERED: K-DUR PO ONE (10:00)
--- NOTE | 2017-04-10 10:42 | Event Note ---
Date: 04/10/17 Pt a little less agitated today, no complaints of abd or groin pain, no obstructive sx, right groin hernia easily reducible, WBC normal, no need for surgical intervention for right groin hernia at this time. I will sign off , please reconsult me if needed.
[2017-04-10] MEDS: KCL 10MEQ/100ML 10 MEQ/100 ML BAG IV SCH ×2 (11:33→13:29)
--- NOTE | 2017-04-10 12:49 | Progress Note ---
Assessment and Plan Assessment and plan: Abdominal pain likely from ileus -Improving Sepsis due to UTI -Improving, patient is on IV Levaquin and IV fluid -WBC is trending down NGCO -Creatinine is trended down to normal level -Nephrology consult appreciated Hypokalemia - Check magnesium level -Repleted Psychosis, hallucination -Psychiatric the consulted DVT prophylaxis - lovenox Disposition -Continue inpatient care. History Interval history: Patient was seen and evaluated this morning, patient is confused and was inattentive. No fever or abdominal pain. Hospitalist Physical - Physical exam Narrative exam: Not in cardiopulmonary distress. The patient appeared well nourished and normally developed. Vital signs as documented. Head exam is unremarkable. No scleral icterus . Neck is without jugular venous distension, thyromegaly, or carotid bruits. Lungs are clear to auscultation. Cardiac exam reveals regular rate and Rhythm. First and second heart sounds normal. No murmurs, rubs or gallops. Abdominal exam reveals small reducible hernia. Extremities are nonedematous and both femoral and pedal pulses are normal. 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 No focal weakness. Psych: Patient is talking to people who are not in the room, inattentive, paranoid. - Constitutional Vitals: Temp Pulse Resp BP Pulse Ox 98.1 F 87 20 144/69 97 04/10/17 08:00 04/10/17 08:00 04/10/17 09:24 04/10/17 08:00 04/10/17 08:00 General appearance: Present: no acute distress Results - Labs CBC & Chem 7: 04/10/17 05:09 04/10/17 05:09 Labs: Laboratory Last Values WBC 8.9 K/mm3 (4.5-11.0) 04/10/17 05:09 RBC 4.34 M/mm3 (3.65-5.03) 04/10/17 05:09 Hgb 13.1 gm/dl (10.1-14.3) 04/10/17 05:09 Hct 38.9 % (30.3-42.9) 04/10/17 05:09 MCV 90 fl (79-97) 04/10/17 05:09 MCH 30 pg (28-32) 04/10/17 05:09 MCHC 34 % (30-34) 04/10/17 05:09 RDW 13.9 % (13.2-15.2) 04/10/17 05:09 Plt Count 415 K/mm3 (140-440) 04/10/17 05:09 Lymph % (Auto) 32.5 % (13.4-35.0) 04/10/17 05:09 [place] % (Auto) 11.4 % (0.0-7.3) H 04/10/17 05:09 Eos % (Auto) 1.8 % (0.0-4.3) 04/10/17 05:09 Baso % (Auto) 1.0 % (0.0-1.8) 04/10/17 05:09 Lymph # 2.9 K/mm3 (1.2-5.4) 04/10/17 05:09 [place] # 1.0 K/mm3 (0.0-0.8) H 04/10/17 05:09 Eos # 0.2 K/mm3 (0.0-0.4) 04/10/17 05:09 Baso # 0.1 K/mm3 (0.0-0.1) 04/10/17 05:09 Seg Neutrophils % 53.3 % (40.0-70.0) 04/10/17 05:09 Seg Neutrophils # 4.7 K/mm3 (1.8-7.7) 04/10/17 05:09 Sodium 144 mmol/L (137-145) 04/10/17 05:09 Potassium 3.0 mmol/L (3.6-5.0) L 04/10/17 05:09 Chloride 98.8 mmol/L (98-107) 04/10/17 05:09 Carbon Dioxide 28 mmol/L (22-30) 04/10/17 05:09 Anion Gap 20 mmol/L 04/10/17 05:09 BUN 20 mg/dL (7-17) H 04/10/17 05:09 Creatinine 0.9 mg/dL (0.7-1.2) D 04/10/17 05:09 Estimated GFR > 60 ml/min 04/10/17 05:09 BUN/Creatinine Ratio 22.22 % 04/10/17 05:09 Glucose 97 mg/dL (65-100) 04/10/17 05:09 Lactic Acid 0.90 mmol/L (0.7-2.0) 04/09/17 14:04 Calcium 9.0 mg/dL (8.4-10.2) 04/10/17 05:09 Magnesium 2.20 mg/dL (1.7-2.3) 04/10/17 05:09 Total Bilirubin 0.40 mg/dL (0.1-1.2) 04/08/17 17:44 AST 92 units/L (5-40) H 04/08/17 17:44 ALT 53 units/L (7-56) 04/08/17 17:44 Alkaline Phosphatase 114 units/L (35-129) 04/08/17 17:44 NT-Pro-B Natriuret Pep 163.7 pg/mL (0-900) 04/08/17 17:44 Total Protein 8.8 g/dL (6.3-8.2) H 04/08/17 17:44 Albumin 4.7 g/dL (3.9-5) 04/08/17 17:44 Albumin/Globulin Ratio 1.1 % 04/08/17 17:44 Urine Color Yellow (Yellow) 04/09/17 Unknown Urine Turbidity Clear (Clear) 04/09/17 Unknown Urine pH 5.0 (5.0-7.0) 04/09/17 Unknown Ur Specific [place] 1.013 (1.003-1.030) 04/09/17 Unknown Urine Protein <15 mg/dl mg/dL (Negative) 04/09/17 Unknown Urine Glucose (UA) Neg mg/dL (Negative) 04/09/17 Unknown Urine Ketones Neg mg/dL (Negative) 04/09/17 Unknown Urine Blood Sm (Negative) 04/09/17 Unknown Urine Nitrite Neg (Negative) 04/09/17 Unknown Urine Bilirubin Neg (Negative) 04/09/17 Unknown Urine Urobilinogen < 2.0 mg/dL (<2.0) 04/09/17 Unknown Ur Leukocyte Esterase Sm (Negative) 04/09/17 Unknown Urine WBC (Auto) 4.0 /HPF (0.0-6.0) 04/09/17 Unknown Urine RBC (Auto) 1.0 /HPF (0.0-6.0) 04/09/17 Unknown U Epithel Cells (Auto) 4.0 /HPF (0-13.0) 04/09/17 Unknown Urine Bacteria (Auto) 2+ /HPF (Negative) 04/08/17 17:45 Urine Mucus Few /HPF 04/09/17 Unknown Urine Creatinine 110.8 mg/dL (0.1-20.0) H 04/09/17 Unknown Urine Sodium 20 mEq/L 04/09/17 Unknown Urine Total Protein 11 mg/dL (5-11.8) 04/09/17 Unknown
[2017-04-10] MEDS: LOVENOX SUB-Q SCH (23:06)
[2017-04-11] MEDS: ROCEPHIN/NS 1 GM/50 ML 1 GM/50 ML BAG IV SCH (08:09)
--- NOTE | 2017-04-11 12:07 | Progress Note ---
Assessment and Plan Assessment and plan: Abdominal pain likely from ileus -Improving Sepsis due to UTI -patient is on IV Levaquin and IV fluid -WBC is trending down - Resolving NGOC -Creatinine is trended down to normal level -Nephrology consult appreciated -We will check BMP now Hypokalemia - Check magnesium level and BMP today - Repleted -Repleted Psychosis, hallucination -Psychiatric the consulted DVT prophylaxis - lovenox Disposition -Pending psych evaluation History Interval history: Patient was seen and evaluated this morning, patient is alert and oriented but has hallucianations. No fever or abdominal pain. Hospitalist Physical - Physical exam Narrative exam: Not in cardiopulmonary distress. The patient appeared well nourished and normally developed. Vital signs as documented. Head exam is unremarkable. No scleral icterus . Neck is without jugular venous distension, thyromegaly, or carotid bruits. Lungs are clear to auscultation. Cardiac exam reveals regular rate and Rhythm. First and second heart sounds normal. No murmurs, rubs or gallops. Abdominal exam reveals small reducible hernia. Extremities are nonedematous and both femoral and pedal pulses are normal. 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 No focal weakness. Psych: Patient is talking to people who are not in the room, inattentive, paranoid. - Constitutional Vitals: Temp Pulse Resp BP Pulse Ox 98.8 F 76 20 130/65 98 04/11/17 08:00 04/11/17 08:00 04/11/17 08:04 04/11/17 08:00 04/11/17 08:00 General appearance: Present: no acute distress Results - Labs CBC & Chem 7: 04/10/17 05:09 04/10/17 05:09 Labs: Laboratory Last Values WBC 8.9 K/mm3 (4.5-11.0) 04/10/17 05:09 RBC 4.34 M/mm3 (3.65-5.03) 04/10/17 05:09 Hgb 13.1 gm/dl (10.1-14.3) 04/10/17 05:09 Hct 38.9 % (30.3-42.9) 04/10/17 05:09 MCV 90 fl (79-97) 04/10/17 05:09 MCH 30 pg (28-32) 04/10/17 05:09 MCHC 34 % (30-34) 04/10/17 05:09 RDW 13.9 % (13.2-15.2) 04/10/17 05:09 Plt Count 415 K/mm3 (140-440) 04/10/17 05:09 Lymph % (Auto) 32.5 % (13.4-35.0) 04/10/17 05:09 [place] % (Auto) 11.4 % (0.0-7.3) H 04/10/17 05:09 Eos % (Auto) 1.8 % (0.0-4.3) 04/10/17 05:09 Baso % (Auto) 1.0 % (0.0-1.8) 04/10/17 05:09 Lymph # 2.9 K/mm3 (1.2-5.4) 04/10/17 05:09 [place] # 1.0 K/mm3 (0.0-0.8) H 04/10/17 05:09 Eos # 0.2 K/mm3 (0.0-0.4) 04/10/17 05:09 Baso # 0.1 K/mm3 (0.0-0.1) 04/10/17 05:09 Seg Neutrophils % 53.3 % (40.0-70.0) 04/10/17 05:09 Seg Neutrophils # 4.7 K/mm3 (1.8-7.7) 04/10/17 05:09 Sodium 144 mmol/L (137-145) 04/10/17 05:09 Potassium 3.0 mmol/L (3.6-5.0) L 04/10/17 05:09 Chloride 98.8 mmol/L (98-107) 04/10/17 05:09 Carbon Dioxide 28 mmol/L (22-30) 04/10/17 05:09 Anion Gap 20 mmol/L 04/10/17 05:09 BUN 20 mg/dL (7-17) H 04/10/17 05:09 Creatinine 0.9 mg/dL (0.7-1.2) D 04/10/17 05:09 Estimated GFR > 60 ml/min 04/10/17 05:09 BUN/Creatinine Ratio 22.22 % 04/10/17 05:09 Glucose 97 mg/dL (65-100) 04/10/17 05:09 Lactic Acid 0.90 mmol/L (0.7-2.0) 04/09/17 14:04 Calcium 9.0 mg/dL (8.4-10.2) 04/10/17 05:09 Magnesium 2.20 mg/dL (1.7-2.3) 04/10/17 05:09 Total Bilirubin 0.40 mg/dL (0.1-1.2) 04/08/17 17:44 AST 92 units/L (5-40) H 04/08/17 17:44 ALT 53 units/L (7-56) 04/08/17 17:44 Alkaline Phosphatase 114 units/L (35-129) 04/08/17 17:44 NT-Pro-B Natriuret Pep 163.7 pg/mL (0-900) 04/08/17 17:44 Total Protein 8.8 g/dL (6.3-8.2) H 04/08/17 17:44 Albumin 4.7 g/dL (3.9-5) 04/08/17 17:44 Albumin/Globulin Ratio 1.1 % 04/08/17 17:44 Urine Color Yellow (Yellow) 04/09/17 Unknown Urine Turbidity Clear (Clear) 04/09/17 Unknown Urine pH 5.0 (5.0-7.0) 04/09/17 Unknown Ur Specific [place] 1.013 (1.003-1.030) 04/09/17 Unknown Urine Protein <15 mg/dl mg/dL (Negative) 04/09/17 Unknown Urine Glucose (UA) Neg mg/dL (Negative) 04/09/17 Unknown Urine Ketones Neg mg/dL (Negative) 04/09/17 Unknown Urine Blood Sm (Negative) 04/09/17 Unknown Urine Nitrite Neg (Negative) 04/09/17 Unknown Urine Bilirubin Neg (Negative) 04/09/17 Unknown Urine Urobilinogen < 2.0 mg/dL (<2.0) 04/09/17 Unknown Ur Leukocyte Esterase Sm (Negative) 04/09/17 Unknown Urine WBC (Auto) 4.0 /HPF (0.0-6.0) 04/09/17 Unknown Urine RBC (Auto) 1.0 /HPF (0.0-6.0) 04/09/17 Unknown U Epithel Cells (Auto) 4.0 /HPF (0-13.0) 04/09/17 Unknown Urine Bacteria (Auto) 2+ /HPF (Negative) 04/08/17 17:45 Urine Mucus Few /HPF 04/09/17 Unknown Urine Creatinine 110.8 mg/dL (0.1-20.0) H 04/09/17 Unknown Urine Sodium 20 mEq/L 04/09/17 Unknown Urine Total Protein 11 mg/dL (5-11.8) 04/09/17 Unknown
[2017-04-11 12:54] LABS: Anion Gap 18 mmol/L; BUN/Creatinine Ratio 16.66; Blood Urea Nitrogen 10 mg/dL (7-17); Calcium 9.2 mg/dL (8.4-10.2); Carbon Dioxide 29 mmol/L (22-30); Chloride 99.7 mmol/L (98-107); Glucose 122 mg/dL (65-100); Potassium 3.1 mmol/L (3.6-5.0); Sodium 144 mmol/L (137-145)
[2017-04-11] MEDS ORDERED: K-DUR PO ONE ×2 (14:25→18:00)
--- NOTE | 2017-04-11 14:25 | Progress Note ---
Assessment and Plan - Patient Problems (1) Acute kidney injury Current Visit: Yes Status: Acute Plan to address problem: most likely due to pre-renal azotemia in the setting of ileus/volume depletion. renal function improved with Cr 0.6mg/dl supportive care for NGOC, avoid nephrotoxins, NSAIDs, IV contrast (2) Hypokalemia Current Visit: Yes Status: Acute Plan to address problem: cont supplementation with KDur (3) Ileus Current Visit: Yes Status: Acute Plan to address problem: supportive care, follow surgery recs Subjective Date of service: 04/11/17 Principal diagnosis: ileus, acute kidney injury Interval history: pt awake, alert, in NAD Objective - Vital Signs Vital signs: Vital Signs - 12hr 04/11/17 04/11/17 04/11/17 07:59 08:00 08:04 Temperature 98.8 F Pulse Rate 76 Respiratory 18 18 Rate Respiratory 20 Rate [Left Leg] Blood Pressure 130/65 O2 Sat by Pulse 98 Oximetry - General Appearance General appearance: well-developed, well-nourished, appears stated age EENT: ATNC, PERRL, mucous membranes moist Neck: no JVD Respiratory: Present: Clear to Ascultation Cardiology: regular, S1S2 Gastrointestinal: normoactive bowel sounds Integumentary: no rash, other Neurologic: no focal deficit, alert and oriented x3, strength 5/5, CN 3-12 intact Psychiatric: mood/affect appropriate, cooperative - Lab 04/10/17 05:09 04/11/17 12:25 Most recent lab results Calcium 9.2 mg/dL (8.4-10.2) 04/11/17 12:25 Magnesium 2.00 mg/dL (1.7-2.3) 04/11/17 12:25 Urine Creatinine 110.8 mg/dL (0.1-20.0) H 04/09/17 Unknown Urine Sodium 20 mEq/L 04/09/17 Unknown Urine Total Protein 11 mg/dL (5-11.8) 04/09/17 Unknown
[2017-04-11] MEDS: MORPHINE IV PRN ×2 (15:29→20:16)
[2017-04-11] MEDS: NACL 0.9% 1000 ML 1,000 ML IV SCH (20:27)
[2017-04-11] MEDS: LOVENOX SUB-Q SCH (22:12)
[2017-04-12] MEDS ORDERED: K-DUR PO ONE (07:51)
[2017-04-12] MEDS: NACL 0.9% 1000 ML 1,000 ML IV SCH (09:04)
[2017-04-12] MEDS: ROCEPHIN/NS 1 GM/50 ML 1 GM/50 ML BAG IV SCH (09:05)
--- NOTE | 2017-04-12 10:25 | Discharge Summary ---
Providers - Providers Date of Admission: 04/09/17 08:05 Date of discharge: 04/12/17 Attending physician: ANJELICA MALLOY MD 04/09/17 08:24 Consult to Physician [CONS] Routine Consulting Provider: ADAN TSE Reason For Exam: Right inguinal Place consult to:: yes Notified:: DR. TSE Phone number called:: yes Was contact made?: Yes If yes, spoke with:: y 04/09/17 12:46 Consult to Physician [CONS] Routine Consulting Provider: EDDIE JEREZ Reason For Exam: Acute renal failure Place consult to:: yes Notified:: DR. JEREZ Phone number called:: yes Was contact made?: Yes If yes, spoke with:: y 04/10/17 12:43 Consult to Mental Health [CONS] Urgent Reason For Exam: confusion, paranoia Place consult to:: Psych Notified:: yes Primary care physician: TUBE BENDING MACHINE OPERATOR Hospitalization Reason for admission: sepsis Condition: Stable Pertinent studies: CT abdomen and pelvis, significant for constipation, ileus and small inguinal hernia Hospital course: Admission H/P Patient is 56 years old female with past medical history of multiple sclerosis and fibromyalgia presents to the hospital complaints of abdominal pain, nausea and vomiting. patient two days of severe abdominal pain, nausea and vomiting. She stated that on yesterday evening after being in her usual state of health she began to experience sharp lower abdominal pain that radiated to right lower quadrant. The pain waxed and waned and was about a 4/10.Since yesterday she has had severe nausea and has had 4 episodes of bilious vomiting despite not having taken anything by mouth in over 24 hours. Her last bowel movement was over five days ago. She has a history of intermittent constipation but never with this level of pain, the vomiting, or the bloating. Patient also mentioned her abdominal pain is coming from her right inguinal hernia. patient was admitted to the floor for the management of sepsis 2/2 UTI and was put on IV levaquin, surgery consult appreciated and recommend no intervention for inguinal hernia at this time, Psychiatry was consulted for the hallucination and confusion and psych said it is delirium and resolved with the management of her sepsis. Her creatinine was trended down with fluid. Patient was hemodynamically stable at the time of discharge. Her medications were reviewed and updated at the time of discharge. Patient was discharged to SNF. Disposition: [id number]/[id number] SNF [facility] CERT - Discharge Diagnoses (1) Acute kidney injury Status: Acute (2) Constipation Status: Acute Qualifiers: Constipation type: C (3) Hypokalemia Status: Acute (4) Ileus Status: Acute (5) Right inguinal hernia Status: Acute Core Measure Documentation - Palliative Care Palliative Care/ Comfort Measures: Not Applicable - Core Measures Any of the following diagnoses?: none Exam - Physical Exam Narrative exam: Not in cardiopulmonary distress. The patient appeared well nourished and normally developed. Vital signs as documented. Head exam is unremarkable. No scleral icterus . Neck is without jugular venous distension, thyromegaly, or carotid bruits. Lungs are clear to auscultation. Cardiac exam reveals regular rate and Rhythm. First and second heart sounds normal. No murmurs, rubs or gallops. Abdominal exam reveals small reducible hernia. Extremities are nonedematous and both femoral and pedal pulses are normal. 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 No focal weakness. Psych: Patient is talking to people who are not in the room, inattentive, paranoid. - Constitutional Vitals: Temp Pulse Resp BP Pulse Ox 99.5 F 80 16 157/79 97 04/12/17 08:30 04/12/17 08:30 04/12/17 08:30 04/12/17 08:30 04/12/17 08:30 Plan Activity: no restrictions Weight Bearing Status: Full Weight Bearing Diet: low cholesterol Follow up with: PRIMARY CAREMD [Primary Care Provider] - 7 Days Prescriptions: Levofloxacin [Levaquin] 250 mg PO QDAY #5 tablet Xanax TAB 1 mg PO DAILY PRN #15 PRN Reason: Agitation
--- NOTE | 2017-04-12 14:20 | Consultation ---
History of Present Illness - Reason for Consult Consult date: 04/12/17 Reason for consult: psychiatric evaluation, confusion/paranoia - Chief Complaint Chief complaint: "Confusion" 56 year old female seen for psychiatric evaluation on the medical floor. The consult was ordered for confusion and paranoia. Her family was available for collateral and the patient provided history and discussed her present state. She is currently being treated for a urinary tract infection and was reported to be treated for sepsis. She is improving medically per the record and her family. She plans to go to a nursing & rehab center in the next 1-2 days. The family reports she has greatly improved mentally and she is less confused compared to 2 days ago. Her family member states she was talking out of her head and babbling. Today, she is alert and oriented to person, place, date, time , and situation. She intermittently has to be redirected as she could not complete her thought. She reports short term memory loss and reports some of it is related to multiple sclerosis. She reports having multiple lesions. Her family reports she is close to her baseline as far as her mental status and memory. She was able to recall 1/3 words after 5 minutes. In addition, the patient reports being treated for depression and anxiety by an outpatient psychiatrist at the [facility]. She takes Celexa 40mg daily, Wellbutrin SR 200mg twice daily, and gabapentin 800mg three times daily ( possibly for mental health). She wants to continue taking these medications and keep seeing her outpatient psychiatrist. She reports receiving outpatient care since the . She reports no concerns with her current regimen. She was at [place] less than one year ago but the reason she gave is unclear , and the family reports she disappeared and did not know she had gone to a psychiatric hospital. She denies a history of suicide attempts. She indicates someone told her she has an episode of psychosis previously and thought it was related to MS. She denies the use of alcohol or illicit substances. She denies overtaking her medications. Her family reports her home medications will be sent to the nursing & rehab center to be reconciled. Medications and Allergies Allergies Allergy/AdvReac Type Severity Reaction Status Date / Time codeine Allergy Rash Verified 04/09/17 01:33 meloxicam Allergy Anaphylaxis Verified 04/09/17 01:33 Penicillins Allergy Rash Verified 04/09/17 01:33 vancomycin Allergy Rash Verified 04/09/17 01:33 bee string Allergy Anaphylaxis Uncoded 04/09/17 01:33 Home Medications Medication Instructions Recorded Confirmed Last Taken Type Baclofen [Lioresal] 40 mg PO PRN 04/09/17 Unknown History Citalopram [Celexa] 40 mg PO QDAY 04/09/17 04/09/17 Unknown History Fish Oil 1,000 mg Softgel 1,000 mg PO DAILY 04/09/17 04/09/17 Unknown History Gabapentin [Neurontin] 800 mg PO TID 04/09/17 04/09/17 Unknown History Meclizine [Antivert] 25 mg PO TID PRN 04/09/17 04/09/17 Unknown History Tolterodine Tartrate ER 4 mg PO DAILY 04/09/17 04/09/17 Unknown History buPROPion [Wellbutrin] 200 mg PO DAILY 04/09/17 04/09/17 Unknown History Levofloxacin [Levaquin] 250 mg PO QDAY #5 tablet 04/12/17 Unknown Rx Xanax TAB 1 mg PO DAILY PRN #15 04/12/17 Unknown Rx Active Meds: Active Medications Acetaminophen (Tylenol) 650 mg PO Q4H PRN PRN Reason: Pain MILD(1-3)/Fever >100.5/ROSADO Bisacodyl (Dulcolax) 10 mg OR QDAY PRN PRN Reason: Constipation Enoxaparin Sodium (Lovenox) 40 mg SUB-Q QHS [facility] Last Admin: 04/11/17 22:12 Dose: 40 mg Sodium Chloride (Nacl 0.9% 1000 Ml) 1,000 mls @ 75 mls/hr IV DIRECT [facility] Last Admin: 04/12/17 09:04 Dose: 75 mls/hr Ceftriaxone Sodium (Rocephin/Ns 1 Gm/50 Ml) 1 gm in 50 mls @ 100 mls/hr IV Q24H VASYL PRN Reason: Protocol Last Admin: 04/12/17 09:05 Dose: 100 mls/hr Morphine Sulfate (Morphine) 2 mg IV Q4H PRN PRN Reason: Pain, Moderate (4-6) Last Admin: 04/11/17 20:16 Dose: 2 mg Ondansetron HCl (Zofran) 4 mg IV Q4H PRN PRN Reason: Nausea And Vomiting Past psychiatric history - Past Medical History Past Medical History: other (multiple sclerosis) - past Psychiatric treatment and history Psych: Anxiety, Depression - Social History Social history: other (has family support and support of neighbors) Mental Status Exam - Vital signs Last Vital Signs Temp 99.5 F 04/12/17 08:30 Pulse 80 04/12/17 08:30 Resp 16 04/12/17 08:30 BP 157/79 04/12/17 08:30 Pulse Ox 97 04/12/17 08:30 - Exam Orientation: time, place, person Affect: anxious Mood: congruent with affect Thought content: other (no suicidal or homicidal ideation. No hallucinations reported. No current paranoia) Thought Process: Circumstantial Perceptions: none Speech: normal rate and pattern Concentration: distractible Motor activity: restless Level of consciousness: alert Memory: Recent Impaired Sleep Symptoms: Difficulty Falling Asleep Interaction: cooperative Results Result Diagrams: 04/10/17 05:09 04/11/17 12:25 All other labs normal. Assessment and Plan Assessment and plan: Impression: recent paranoia and altered mental status likely related to her medical condition of infections. Memory disturbances, hallucinations, and paranoia may occur due to multiple sclerosis. Brief psychotic episodes may occur with MS. Her mental status is near baseline according to her family, and therefore, it reasonable to attribute the recent paranoia and AMS to her acute medical conditions. Reported history of depressive disorder and anxiety disorder, unspecified, currently managed by an outpatient psychiatrist. Recommendation: Continue medical treatment per the hospitalist and medical team. Continue current psychiatric medications for depression and anxiety as reconciled from her home meds. The family was informed about the importance of sending her medications to the nursing & rehab center to be reconciled. Continue outpatient treatment with the psychiatrist and notify the doctor of this admission. She did report some trouble falling asleep. She was instructed to take the Wellbutrin SR in the AM and afternoon, and do not take the second dose at night since it can be activating and promote difficulty with falling asleep. The delirium is resolving but the following precautions will be helpful: 1. Frequently reorient patient and involve him/her in their care (simple explanations of procedures, tests, medications). 2. Lights on and shades open during daytime hours. 3. Try to avoid unnecessary interruptions to sleep during nighttime hours. 4. Obtain glasses, hearing aids from home if patient uses these at baseline. 5. Avoid medications that may exacerbate delirium (especially narcotics, benzodiazepines, barbiturates, ambien, lunesta, and medications with excessive anticholinergic properties).
[2017-04-12 14:37] VITALS: BP 124/68
--- NOTE | 2017-04-12 14:38 | Progress Note ---
Assessment and Plan - Patient Problems (1) Acute kidney injury Current Visit: Yes Status: Acute Plan to address problem: most likely due to pre-renal azotemia in the setting of ileus/volume depletion. renal function improved with Cr 0.6mg/dl stable for discharge from renal stand point (2) Hypokalemia Current Visit: Yes Status: Acute Plan to address problem: cont supplementation with KDur (3) Ileus Current Visit: Yes Status: Acute Plan to address problem: supportive care, improving Subjective Date of service: 04/12/17 Principal diagnosis: ileus, acute kidney injury Interval history: pt awake, alert, in NAD Objective - Vital Signs Vital signs: Vital Signs - 12hr 04/12/17 04/12/17 08:30 12:20 Temperature 99.5 F 99.5 F Pulse Rate 80 86 Respiratory 16 18 Rate Blood Pressure 157/79 124/68 O2 Sat by Pulse 97 97 Oximetry - General Appearance General appearance: well-developed, well-nourished, appears stated age EENT: ATNC, PERRL, mucous membranes moist Neck: no JVD Respiratory: Present: Clear to Ascultation Cardiology: regular, S1S2 Gastrointestinal: normoactive bowel sounds Integumentary: no rash, other (no edema ) Neurologic: no focal deficit, alert and oriented x3, strength 5/5, CN 3-12 intact Psychiatric: mood/affect appropriate, cooperative - Lab 04/10/17 05:09 04/11/17 12:25 Most recent lab results Calcium 9.2 mg/dL (8.4-10.2) 04/11/17 12:25 Magnesium 2.00 mg/dL (1.7-2.3) 04/11/17 12:25 Urine Creatinine 110.8 mg/dL (0.1-20.0) H 04/09/17 Unknown Urine Sodium 20 mEq/L 04/09/17 Unknown Urine Total Protein 11 mg/dL (5-11.8) 04/09/17 Unknown
== END 2017-04-12 15:32 | DRG 871 ==
LOC: ED 14:39 → 4A 04-09 08:05 → 3A 04-09 08:39
PROVIDERS: ADMIT Internal Medicine; ATTEND Internal Medicine
DX: A41.9 Sepsis, unspecified organism (principal); N17.0 Acute kidney failure with tubular necrosis; K56.7 Ileus, unspecified; N39.0 Urinary tract infection, site not specified; R44.3 Hallucinations, unspecified; K40.90 Unilateral inguinal hernia, without obstruction or gangrene, not specified as recurrent; E87.6 Hypokalemia; K59.00 Constipation, unspecified; G35 Multiple sclerosis; M79.7 Fibromyalgia; F32.9 Major depressive disorder, single episode, unspecified; F41.9 Anxiety disorder, unspecified; F29 Unspecified psychosis not due to a substance or known physiological condition; Z88.0 Allergy status to penicillin; Z88.5 Allergy status to narcotic agent; Z88.1 Allergy status to other antibiotic agents; Z91.030 Bee allergy status; Z82.49 Family history of ischemic heart disease and other diseases of the circulatory system
CPT/HCPCS: 36415; 74176; 76770; 80048; 80053; 81001; 82140; 82570; 83735; 83880; 84156; 84300; 85025; 96365; 96366; 96367; 96375; J0696; J1630; J1650; J1956; J2270; J2405; J3480; J7030

== ENCOUNTER 2017-05-20 00:36 | Emergency (ER) | payer MEDICARE ==
[2017-05-20 03:10] LABS: Basophils % (Auto) 0.7 % (0.0-1.8); Eosinophils % (Auto) 0.5 % (0.0-4.3); Hematocrit 39.2 % (30.3-42.9); Hemoglobin 13.3 gm/dl (10.1-14.3); Mean Corpuscular HGB Conc 34 % (30-34); Mean Corpuscular Hemoglobin 31 pg (28-32); Mean Corpuscular Volume 90 fl (79-97); Platelet Count 383 K/mm3 (140-440); Red Blood Count 4.35 M/mm3 (3.65-5.03); Red Cell Distribution Width 15.1 % (13.2-15.2); White Blood Count 9.9 K/mm3 (4.5-11.0)
[2017-05-20 03:23] LABS: Alanine Aminotransferase 15 units/L (7-56); Albumin/Globulin Ratio 1.1 %; Alkaline Phosphatase 109 units/L (35-129); Anion Gap 19 mmol/L; Blood Urea Nitrogen 12 mg/dL (7-17); Calcium 9.5 mg/dL (8.4-10.2); Carbon Dioxide 25 mmol/L (22-30); Chloride 101.5 mmol/L (98-107); Glucose 101 mg/dL (65-100); Potassium 4.3 mmol/L (3.6-5.0); Sodium 141 mmol/L (137-145); Total Protein 7.6 g/dL (6.3-8.2)
--- NOTE | 2017-05-20 03:50 | Cat Scan Report ---
FINAL REPORT EXAM: CT HEAD/BRAIN WO CON HISTORY: head injury lac on rt eyebrow COMPARISON: None available. TECHNIQUE: Axial images obtained skull base through vertex. FINDINGS: No acute intracranial hemorrhage or midline shift. There is a thin late subacute to early chronic subdural hematoma along the posterior left parietal convexity. No associated mass effect. Age related volume loss with compensatory dilatation of the ventricular system and chronic small vessel ischemic disease. Otherwise, light-white differentiation preserved. Calvarium grossly intact. Minimal mucosal thickening of a posterior right ethmoid air cell. Mastoid air cells are clear. Visualized mastoid air cells are clear. Mild soft tissue swelling along the right periorbital region. IMPRESSION: No grossly acute intracranial abnormality. Subacute or chronic subdural hematoma along the left superior left parietal convexity. No associated mass effect (series 2, images 51-44). Mild age related volume loss and chronic small vessel ischemic disease. Soft tissue swelling along the right periorbital region.
--- NOTE | 2017-05-20 05:02 | Emergency Department Report ---
HPI - General Chief Complaint: Altered Mental Status Time Seen by Provider: 05/20/17 01:32 - HPI HPI: Patient sent from [facility] with altered mental status, patient failed 3 days ago and has not been herself since. Patient has been lethargic, sleeping a lot. Patient also had decreased by mouth intake since that time. Patient also follow multiple times since then because of unsteadiness. ED Past Medical Hx - Past Medical History Additional medical history: Multiple sclerosis/ FIBROMALYGIA - Surgical History Hx Appendectomy: Yes Additional Surgical History: carpal tunnel x 3. diverticulitis. shoulder repair x 2 - Social History Smoking Status: Unknown if ever smoked Substance Use Type: None - Medications Home Medications: Home Medications Medication Instructions Recorded Confirmed Last Taken Type Baclofen [Lioresal] 40 mg PO PRN 04/09/17 Unknown History Citalopram [Celexa] 40 mg PO QDAY 04/09/17 04/09/17 Unknown History Fish Oil 1,000 mg Softgel 1,000 mg PO DAILY 04/09/17 04/09/17 Unknown History Gabapentin [Neurontin] 800 mg PO TID 04/09/17 04/09/17 Unknown History Meclizine [Antivert] 25 mg PO TID PRN 04/09/17 04/09/17 Unknown History Tolterodine Tartrate ER 4 mg PO DAILY 04/09/17 04/09/17 Unknown History buPROPion [Wellbutrin] 200 mg PO DAILY 04/09/17 04/09/17 Unknown History Levofloxacin [Levaquin] 250 mg PO QDAY #5 tablet 04/12/17 Unknown Rx Xanax TAB 1 mg PO DAILY PRN #15 04/12/17 Unknown Rx ED Review of Systems ROS: Stated complaint: AMS Other details as noted in HPI Comment: All other systems reviewed and negative Cardiovascular: chest pain Endocrine: no symptoms reported Gastrointestinal: as per HPI Physical Exam - Physical Exam Vital Signs: Vital Signs 05/20/17 02:13 Temperature 97.9 F Pulse Rate 77 Respiratory 18 Rate Blood Pressure 150/80 Blood Pressure 150/80 [Left] O2 Sat by Pulse 99 Oximetry Physical Exam: Physical Exam: - General Limitations: No Limitations General appearance: alert, - Head Head exam: Present: Right supraorbital laceration superficial - Eye Eye exam: Present: normal appearance - ENT ENT exam: Present: mucous membranes moist - Neck Neck exam: Present: normal inspection - Respiratory Respiratory exam: Present: normal lung sounds bilaterally. Absent: respiratory distress - Cardiovascular Cardiovascular Exam: Present: normal rhythm, normal rate. Absent: systolic murmur, diastolic murmur, rubs, gallop - GI/Abdominal GI/Abdominal exam: Present: soft, normal bowel sounds - Extremities Exam Extremities exam: Present: normal inspection - Back Exam Back exam: Present: normal inspection - Neurological Exam Neurological exam: Present: alert, confused - Psychiatric Psychiatric exam: normal affect and mood - Skin Skin exam: Present: warm, dry, intact, normal color. Absent: rash ED Course Vital Signs 05/20/17 02:13 Temperature 97.9 F Pulse Rate 77 Respiratory 18 Rate Blood Pressure 150/80 Blood Pressure 150/80 [Left] O2 Sat by Pulse 99 Oximetry ED Medical Decision Making - Lab Data Result diagrams: 05/20/17 02:38 05/20/17 02:38 Critical care attestation.: If time is entered above; I have spent that time in minutes in the direct care of this critically ill patient, excluding procedure time. ED Disposition Clinical Impression: Subdural hematoma Disposition: [id number] ANOTHER TYPE [facility]ARE Is pt being admited?: No Does the pt Need Aspirin: No Condition: Stable Referrals: PRIMARY CARE, [Primary Care Provider] - 3-5 Days
[2017-05-20] MEDS ORDERED: APRESOLINE ONE (05:44)
[2017-05-20] MEDS ORDERED: APRESOLINE IV ONE (06:17)
[2017-05-20 09:05] VITALS: BP 138/68
== END 2017-05-20 09:43 | disposition other institution (70) ==
LOC: ED 00:36
DX: S06.5X9A Traumatic subdural hemorrhage with loss of consciousness of unspecified duration, initial encounter (principal); W17.89XA Other fall from one level to another, initial encounter; Y93.89 Activity, other specified; Y92.89 Other specified places as the place of occurrence of the external cause; Y99.8 Other external cause status; Z88.1 Allergy status to other antibiotic agents; Z88.8 Allergy status to other drugs, medicaments and biological substances; Z91.030 Bee allergy status
CPT/HCPCS: 36415; 70450; 80053; 82140; 85025; 93005; 93010; 96374; 99285; J0360

== ENCOUNTER 2017-08-08 12:26 | Outpatient (CLI) | payer MEDICARE ==
[2017-08-08 13:10] LABS: Basophils % (Auto) 1.3 % (0.0-1.8); Eosinophils % (Auto) 3.3 % (0.0-4.3); Hematocrit 40.6 % (30.3-42.9); Hemoglobin 13.8 gm/dl (10.1-14.3); Mean Corpuscular HGB Conc 34 % (30-34); Mean Corpuscular Hemoglobin 31 pg (28-32); Mean Corpuscular Volume 90 fl (79-97); Platelet Count 478 K/mm3 (140-440); Red Blood Count 4.53 M/mm3 (3.65-5.03); Red Cell Distribution Width 16.5 % (13.2-15.2); White Blood Count 5.8 K/mm3 (4.5-11.0)
[2017-08-08 13:19] LABS: Alanine Aminotransferase 24 units/L (7-56); Albumin 4.5 g/dL (3.9-5); Albumin/Globulin Ratio 1.4 %; Alkaline Phosphatase 132 units/L (35-129); Anion Gap 20 mmol/L; BUN/Creatinine Ratio 19; Blood Urea Nitrogen 15 mg/dL (7-17); Calcium 9.3 mg/dL (8.4-10.2); Carbon Dioxide 25 mmol/L (22-30); Chloride 102.2 mmol/L (98-107); Glucose 90 mg/dL (65-100); Potassium 4.6 mmol/L (3.6-5.0); Sodium 143 mmol/L (137-145); Total Protein 7.8 g/dL (6.3-8.2)
== END 2017-08-08 12:27 | disposition home or self-care (01) ==
LOC: LAB 12:26
PROVIDERS: ATTEND Specialist
DX: G35 Multiple sclerosis (principal)
CPT/HCPCS: 36415; 80053; 82164; 82607; 83921; 85025